=== PATIENT | female | born 1990 | race Asian ===

== ENCOUNTER 2024-04-17 21:37 | Observation (INO) | payer BC, OTHER ==
[~2024-04-17] VITALS: Ht 152.4 cm; Wt 77.1 kg
[2024-04-17 22:36] LABS: Urine Bacteria MOD /hpf (None Seen); Urine Blood 2+ /uL (Negative); Urine Clarity Clear (Clear); Urine Color Light-Yellow (Yellow); Urine Protein, UAD Negative (Negative); Urine Specific Gravity 1.009 (1.001-1.035); Urine Urobilinogen Normal (Negative); Urine WBC 2 /hpf (0 - 5); Urine pH 6.5 (5.0-9.0)
== END 2024-04-17 23:20 | disposition home or self-care (01) ==
LOC: LDRP 21:37
PROVIDERS: ADMIT Obstetrics & Gynecology; ATTEND Obstetrics & Gynecology
DX: O46.93 Antepartum hemorrhage, unspecified, third trimester (principal); O26.893 Other specified pregnancy related conditions, third trimester; N89.8 Other specified noninflammatory disorders of vagina; Z3A.32 32 weeks gestation of pregnancy
CPT/HCPCS: 59025; 76818; 81001; 81002; 94760; G0378

== ENCOUNTER 2024-05-17 10:48 | Inpatient (IN) | payer BC ==
[~2024-05-17] VITALS: Ht 149.9 cm; Wt 68.5 kg
[2024-05-17] VITALS (7 sets, daily range): BP systolic 99–126; BP diastolic 53–60; PULSE 82–100; RESP 12–18; TEMP 98.2–99; O2SAT 97–100
[2024-05-17] MEDS ORDERED: LACTATED RINGER'S 1,000 ML IV SCH (11:45)
[2024-05-17 12:25] LABS: Basophils # (auto) 0 10 ^3/uL (0-0.2); Basophils % (auto) 0.3 % (0.0-2.0); Eosinophils # (auto) 0 10 ^3/uL (0-0.8); Eosinophils % (auto) 0.4 % (0.0-7.0); Hemoglobin 11.4 g/dL (12.2-16.2); Lymphocytes # (auto) 1.3 10 ^3/uL (0.4-5.4); Lymphocytes % (auto) 15.1 % (10.0-50.0); Mean Corpuscular Hemoglobin 32.4 pg (28.0-32.0); Mean Corpuscular Hgb Conc. 34.6 g/dL (32.0-36.0); Mean Corpuscular Volume 93.7 fL (80.0-100.0); Monocytes # (auto) 0.3 10 ^3/uL (0-1.3); Monocytes % (auto) 3.9 % (0.0-12.0); Neutrophils # (auto) 6.9 10 ^3/uL (1.6-8.6); Neutrophils % (auto) 80.3 % (37.0-80.0); Platelet Count (auto) 218 10^3/uL (140-450); Red Blood Cells 3.52 10^6/uL (4.0-5.20); Red Cell Distribution Width 14.1 % (11.8-14.3); White Blood Cell 8.6 10^3/uL (4.4-10.8)
[2024-05-17 12:40] LABS: Albumin 4.1 g/dL (3.2-4.8); Alkaline Phosphatase 146 U/L (46-116); Anion Gap 10 (5-15); Aspartate Aminotransferase < 8 U/L (13-40); Calcium 9.3 mg/dL (8.7-10.4); Carbon Dioxide 20 mmol/L (20-30); Chloride 107 mmol/L (98-107); Glucose 75 mg/dL (74-106); Potassium 4.2 mmol/L (3.5-5.1); Sodium 137 mmol/L (136-145)
[2024-05-17 12:41] LABS: Bilirubin, Total 0.5 mg/dL (0.2-1.0); INR 0.97 (0.9-1.15); Partial Thromboplastin Time 25.8 SEC (24.5-34.5); Prothrombin Time 10.3 sec (9.3-11.8); Total Protein 6.8 g/dL (5.7-8.2)
[2024-05-17 12:42] LABS: Alanine Aminotransferase < 9 U/L (7-40); BUN/Creatinine Ratio 9.3 (10.0-20.0); Blood Urea Nitrogen < 5 mg/dL (9-23)
[2024-05-17] MEDS ORDERED: LIDOCAINE 2%HCL (LOCAL ANESTH.) INJ 20ML MDV IJ PRN (12:45)
[2024-05-17] MEDS ORDERED: MORPHINE SULF PF 5 MG/10 ML VIAL ONE (12:49)
[2024-05-17] MEDS ORDERED: fentaNYL CITRATE 100 MCG/2 ML VL ONE (12:49)
[2024-05-17] MEDS ORDERED: GLYCOPYRROLATE 0.2 MG/ML 1ML VIAL ONE (12:50)
[2024-05-17] MEDS ORDERED: oxyTOCIN 10 UNIT/ML 10ML VIAL ONE (12:50)
[2024-05-17] MEDS ORDERED: KETOROLAC TROMETH 30 MG/ML 1ML VIAL ONE (12:50)
[2024-05-17] MEDS ORDERED: ePHEDrine SULFATE 50 MG/ML AMP ONE (12:50)
[2024-05-17] MEDS ORDERED: ONDANSETRON HCL 4 MG/2 ML VIAL ONE (12:50)
[2024-05-17 13:18] LABS: Urine Bacteria MANY /hpf (None Seen); Urine Blood 2+ /uL (Negative); Urine Protein, UAD Negative (Negative); Urine Specific Gravity 1.005 (1.001-1.035); Urine Urobilinogen Normal (Negative); Urine WBC 1 /hpf (0 - 5); Urine pH 6.5 (5.0-9.0)
[2024-05-17] MEDS: LACTATED RINGER'S 1,000 ML IV SCH (13:18)
[2024-05-17] MEDS: LACTATED RINGER'S 1,000 ML IV ONE (13:18)
[2024-05-17] MEDS: ceFAZolin 2 GM/D5W50ml 50 ML IV ONE (13:20)
[2024-05-17 13:22] LABS: Urine Clarity Sl.Turbid (Clear); Urine Color Light Yellow (Yellow)
[2024-05-17 13:30] LABS: Amphetamine Screen, Urine Neg (NEGATIVE)
[2024-05-17 13:31] LABS: Barbiturate Scree,Urine Neg (NEGATIVE); Benzodiazephine Screen, Urine Neg (NEGATIVE); Cocaine Screen, Urine Neg (NEGATIVE); Opiate Scree,Urine Neg (NEGATIVE); Phencyclidine Screen, Urine Neg (NEGATIVE)
[2024-05-17 14:45] LABS: Cannabinoid Screen, Urine Neg (NEGATIVE)
[2024-05-17] MEDS ORDERED: NALOXONE HCL 0.4 MG/ML VIAL IV PRN (15:15)
[2024-05-17] MEDS ORDERED: DexAMETHasone SOD PHOS 10MG/1ML VIAL INJ IV PRN (15:15)
[2024-05-17] MEDS ORDERED: ONDANSETRON HCL 4 MG/2 ML VIAL IV PRN (15:15)
[2024-05-17 16:00] LABS: Basophils # (auto) 0 10 ^3/uL (0-0.2); Basophils % (auto) 0.2 % (0.0-2.0); Eosinophils # (auto) 0 10 ^3/uL (0-0.8); Eosinophils % (auto) 0.1 % (0.0-7.0); Hematocrit 25.1 % (36.0-46.0); Hemoglobin 8.5 g/dL (12.2-16.2); Lymphocytes # (auto) 1.1 10 ^3/uL (0.4-5.4); Lymphocytes % (auto) 8.6 % (10.0-50.0); Mean Corpuscular Hemoglobin 31.7 pg (28.0-32.0); Mean Corpuscular Volume 93.1 fL (80.0-100.0); Monocytes # (auto) 0.5 10 ^3/uL (0-1.3); Monocytes % (auto) 3.6 % (0.0-12.0); Neutrophils # (auto) 11.6 10 ^3/uL (1.6-8.6); Neutrophils % (auto) 87.5 % (37.0-80.0); Nucleated Red Blood Cells % 0.1 %; Platelet Count (auto) 195 10^3/uL (140-450); Red Cell Distribution Width 13.5 % (11.8-14.3); White Blood Cell 13.2 10^3/uL (4.4-10.8)
[2024-05-17] MEDS ORDERED: diphenhdrAMINE HCL 50 MG/1 ML VL IV PRN (17:15)
[2024-05-17] MEDS: diphenhdrAMINE HCL 50 MG/1 ML VL IV PRN (17:27)
[2024-05-17] MEDS: ceFAZolin 1GM/50ML 50 ML IV SCH (20:54)
[2024-05-17 21:56] LABS: Basophils # (auto) 0 10 ^3/uL (0-0.2); Basophils % (auto) 0.2 % (0.0-2.0); Eosinophils # (auto) 0 10 ^3/uL (0-0.8); Lymphocytes # (auto) 1.1 10 ^3/uL (0.4-5.4); Monocytes # (auto) 0.5 10 ^3/uL (0-1.3)
[2024-05-17 21:58] LABS: Eosinophils % (auto) 0.1 % (0.0-7.0); Hematocrit 22.5 % (36.0-46.0); Lymphocytes % (auto) 11.4 % (10.0-50.0); Mean Corpuscular Hemoglobin 33.1 pg (28.0-32.0); Mean Corpuscular Hgb Conc. 35.7 g/dL (32.0-36.0); Mean Corpuscular Volume 92.8 fL (80.0-100.0); Monocytes % (auto) 5.4 % (0.0-12.0); Neutrophils # (auto) 8.2 10 ^3/uL (1.6-8.6); Neutrophils % (auto) 82.9 % (37.0-80.0); Platelet Count (auto) 183 10^3/uL (140-450); Red Blood Cells 2.42 10^6/uL (4.0-5.20); Red Cell Distribution Width 13.7 % (11.8-14.3); White Blood Cell 9.9 10^3/uL (4.4-10.8)
[2024-05-18] VITALS (19 sets, daily range): BP systolic 94–121; BP diastolic 51–63; PULSE 65–96; RESP 16–18; TEMP 98.2–98.8; O2SAT 95–100
[2024-05-18] MEDS: ACETAMINOPHEN IV 1000 MG/100ML (10MG/ML) IV PRN (00:55)
[2024-05-18 06:35] LABS: Alkaline Phosphatase 101 U/L (46-116); Anion Gap 7 (5-15); Aspartate Aminotransferase 21 U/L (13-40); Calcium 8.5 mg/dL (8.7-10.4); Carbon Dioxide 21 mmol/L (20-30); Chloride 105 mmol/L (98-107); Glucose 91 mg/dL (74-106); Sodium 133 mmol/L (136-145)
[2024-05-18 06:36] LABS: Bilirubin, Total 0.6 mg/dL (0.2-1.0); Total Protein 5.1 g/dL (5.7-8.2)
[2024-05-18 06:37] LABS: Eosinophils # (auto) 0 10 ^3/uL (0-0.8); Eosinophils % (auto) 0.3 % (0.0-7.0); Monocytes # (auto) 0.4 10 ^3/uL (0-1.3); Monocytes % (auto) 4.3 % (0.0-12.0); White Blood Cell 9.9 10^3/uL (4.4-10.8)
[2024-05-18 06:40] LABS: Alanine Aminotransferase < 9 U/L (7-40); BUN/Creatinine Ratio 8.6 (10.0-20.0); Basophils # (auto) 0.1 10 ^3/uL (0-0.2); Basophils % (auto) 0.5 % (0.0-2.0); Blood Urea Nitrogen < 5 mg/dL (9-23); Hematocrit 22.2 % (36.0-46.0); Hemoglobin 7.8 g/dL (12.2-16.2); Lymphocytes # (auto) 1.3 10 ^3/uL (0.4-5.4); Mean Corpuscular Hemoglobin 33.2 pg (28.0-32.0); Mean Corpuscular Hgb Conc. 35.3 g/dL (32.0-36.0); Neutrophils # (auto) 8.1 10 ^3/uL (1.6-8.6); Neutrophils % (auto) 81.9 % (37.0-80.0); Nucleated Red Blood Cells % 0.1 %; Platelet Count (auto) 190 10^3/uL (140-450); Red Blood Cells 2.36 10^6/uL (4.0-5.20); Red Cell Distribution Width 13.5 % (11.8-14.3)
[2024-05-18] MEDS: KETOROLAC TROMETH 30 MG/ML 1ML VIAL IV PRN (07:22)
[2024-05-18] MEDS: FERROUS SULFATE 325mg EC TAB PO SCH (09:56)
[2024-05-18] MEDS: HYDROcodone-ACET 5/325MG TAB PO PRN (16:34)
[2024-05-18] MEDS: SIMETHICONE 80 MG CHEWABLE TABLET PO SCH (17:46)
[2024-05-18] MEDS: IBUPROFEN 800 MG TAB PO PRN (19:05)
[2024-05-18] MEDS: DOCUSATE SOD 100 MG CAP PO SCH (22:07)
[2024-05-19 03:00] VITALS: BP 110/56; PULSE 65; RESP 16; TEMP 97.7; O2SAT 99
[2024-05-19 04:50] LABS: Chloride 109 mmol/L (98-107); Potassium 3.9 mmol/L (3.5-5.1); Sodium 140 mmol/L (136-145)
[2024-05-19 04:51] LABS: Anion Gap 9 (5-15); Carbon Dioxide 22 mmol/L (20-30)
[2024-05-19 04:52] LABS: Calcium 8.9 mg/dL (8.7-10.4)
[2024-05-19 04:56] LABS: Glucose 90 mg/dL (74-106)
[2024-05-19 04:57] LABS: BUN/Creatinine Ratio 10.2 (10.0-20.0); Blood Urea Nitrogen < 5 mg/dL (9-23)
[2024-05-19 05:12] LABS: Basophils # (auto) 0 10 ^3/uL (0-0.2); Eosinophils # (auto) 0.2 10 ^3/uL (0-0.8); Lymphocytes # (auto) 1.7 10 ^3/uL (0.4-5.4); Monocytes # (auto) 0.5 10 ^3/uL (0-1.3)
[2024-05-19 05:15] LABS: Basophils % (auto) 0.5 % (0.0-2.0); Eosinophils % (auto) 1.6 % (0.0-7.0); Hematocrit 21.9 % (36.0-46.0); Hemoglobin 7.7 g/dL (12.2-16.2); Lymphocytes % (auto) 16.6 % (10.0-50.0); Mean Corpuscular Hemoglobin 33.1 pg (28.0-32.0); Mean Corpuscular Volume 94.5 fL (80.0-100.0); Monocytes % (auto) 5.2 % (0.0-12.0); Neutrophils # (auto) 7.6 10 ^3/uL (1.6-8.6); Neutrophils % (auto) 76.1 % (37.0-80.0); Platelet Count (auto) 201 10^3/uL (140-450); Red Blood Cells 2.32 10^6/uL (4.0-5.20); Red Cell Distribution Width 14.1 % (11.8-14.3)
[2024-05-19 06:36] VITALS: BP 112/66; PULSE 77; RESP 16; TEMP 97.8; O2SAT 99
[2024-05-19 08:06] LABS: RPR Non Reactive (Non Reactive)
[2024-05-19] MEDS: DOCUSATE CALCIUM 240 MG CAP PO SCH (10:07)
[2024-05-19 11:00] VITALS: BP 111/58; PULSE 89; RESP 16; TEMP 98.4; O2SAT 97
[2024-05-19] MEDS ORDERED: DOCU-265 PO (14:58)
[2024-05-19] MEDS ORDERED: FER325T PO (14:58)
[2024-05-19] MEDS ORDERED: PREN-96 PO (14:58)
[2024-05-19] MEDS ORDERED: HYDR-4902 PO (14:58)
[2024-05-19] MEDS ORDERED: IBUP-1455 PO (14:58)
[2024-05-19] MEDS ORDERED: ASCO500T11 PO (14:58)
[2024-05-19 15:36] VITALS: BP 114/56; PULSE 80; RESP 16; TEMP 98.1; O2SAT 98
[2024-05-19] MEDS: HYDROcodone-ACET 5/325MG TAB PO PRN (15:56)
[2024-05-20] MEDS ORDERED: PERCOT PO (16:30)
[2024-05-21 13:08] LABS: Treponema Pallidum Ab LC Non Reactive (Non Reactive)
== END 2024-05-19 16:05 | disposition home or self-care (01) | DRG 788 ==
LOC: UNDOADMOB 10:48 → LDRP 10:48 → OBSVTOIN 12:35
PROVIDERS: ADMIT Obstetrics & Gynecology; ATTEND Obstetrics & Gynecology
PROC: 0DNW0ZZ Release Peritoneum, Open Approach (ICD-10-PCS; 2024-05-17)
PROC: 10D00Z1 Extraction of Products of Conception, Low, Open Approach (ICD-10-PCS; principal; 2024-05-17 13:33)
DX: O34.211 Maternal care for low transverse scar from previous cesarean delivery (principal); Z37.0 Single live birth; Z3A.37 37 weeks gestation of pregnancy; O99.62 Diseases of the digestive system complicating childbirth; K66.0 Peritoneal adhesions (postprocedural) (postinfection)
CPT/HCPCS: 36415; 59025; 80048; 80053; 80307; 81001; 81002; 85025; 85610; 85730; 86592; 86780; 86803; 86850; 86900; 86901; 94760; 94762; 96360; 96361; 96366; G0378; J0131; J1885; J2405; J2590